=== PATIENT | male | born 1990 | race Caucasian/White ===

== ENCOUNTER 2019-10-07 10:16 | Emergency (ER) | payer MEDICAID ==
[~2019-10-07] VITALS: Ht 180.3 cm; Wt 77.3 kg
[~2019-10-07 10:16] MED LIST: IBUP-1986 PO; NO HOME MEDS
[2019-10-07] MEDS ORDERED: triamcinolone acetonide 40mg/ml inj IM ONE (12:30)
[2019-10-07 13:11] VITALS: BP 116/72
== END 2019-10-07 13:13 | disposition home or self-care (01) ==
LOC: ER 10:17
DX: L25.9 Unspecified contact dermatitis, unspecified cause (principal); L23.7 Allergic contact dermatitis due to plants, except food; J45.909 Unspecified asthma, uncomplicated; K21.9 Gastro-esophageal reflux disease without esophagitis; F12.90 Cannabis use, unspecified, uncomplicated; Z86.69 Personal history of other diseases of the nervous system and sense organs; Z79.899 Other long term (current) drug therapy
CPT/HCPCS: 96372; 99283; J3301